=== PATIENT | female | born 1960 | race Caucasian/White ===

== ENCOUNTER 2018-02-19 08:28 | Day surgery (SDC) | payer BC, OTHER ==
[2018-02-19] MEDS ORDERED: DIPRIVAN 200 MG/20 ML IV ONE (08:29)
[2018-02-19] MEDS ORDERED: Ketamine HCl 50 MG/ML IV ONE (08:29)
[2018-02-19] MEDS ORDERED: Lactated Ringers 1,000 ML IV SCH (09:00)
--- NOTE | 2018-02-19 09:20 | HP ---
DATE OF SURGERY: 02/19/2018 HISTORY OF PRESENT ILLNESS: The patient is a 57 year-old had some change in bowel movements and some upper abdominal discomfort not related to gallbladder issues from reflux. I felt she would benefit from lower endoscopy for evaluation. PAST MEDICAL HISTORY: Hypercholesterolemia. History of some bradycardia in the past. Degenerative disc disease. PAST SURGICAL HISTORY: Cholecystectomy in the past. Gastrocnemius. Heel release in the past. Right rotator cuff, carpal tunnel. She had a ruptured ovarian cyst in the past. Hysterectomy in the past. MEDICATIONS: Clonazepam, citalopram, omeprazole, meloxicam, Esterase along with cholesterol medication. ALLERGIES: NKDA. FAMILY HISTORY: Hypertension, myocardial infarction, diabetes. SOCIAL HISTORY: No smoking. Occasional alcohol use. REVIEW OF SYSTEMS: Twelve systems reviewed pertinent for as noted above. PHYSICAL EXAMINATION: GENERAL: No acute distress. HEENT: Sclerae nonicteric. NECK: No JVD. CHEST: Equal excursion, nonlabored breathing. CVS: Regular rate and rhythm. ABDOMEN: Soft. No peritoneal signs. EXTREMITIES: No significant edema. NEURO: Alert, oriented, moving extremities symmetrically. No gross motor deficits noted. IMPRESSION: Upper abdominal discomfort and some reflux. I feel she would benefit from upper and lower endoscopy for further evaluation. She was shown the risk sheet and explained the procedure in detail including but not limited to bleeding or infection, risk of bowel injury or perforation possibly requiring open procedure, risk of missed or nondiagnosis or incomplete exam possibly requiring barium enema, other studies or procedures, general risk of bowel prep or sedation, postoperative risk of nausea or cramping but not limited to, possibility of inability to diagnose the etiology of her symptoms. She understands and agrees to the planned procedure and will proceed with EGD and colonoscopy as an outpatient.
[2018-02-19] MEDS ORDERED: Lactated Ringers 1,000 ML IV ONE (09:32)
[2018-02-19 13:00] VITALS: BP 133/74; PULSE 51; O2SAT 99
--- NOTE | 2018-02-20 07:58 | OP ---
SURGERY DATE/TIME: 02/19/2018 1045 PREOPERATIVE DIAGNOSES: 1) Increasing reflux, abdominal pain, left lower quadrant aches and pains, a little change in bowel movements. Past medical history of gastritis. 2) Rare, very tiny diverticula. 3) Small internal and external hemorrhoids. 4) Small raised lesion versus hyperplastic lesion transverse colon, descending colon, sigmoid colon. POSTOPERATIVE DIAGNOSES: 1) Increasing reflux, abdominal pain, left lower quadrant aches and pains, a little change in bowel movements. Past medical history of gastritis. 2) Rare, very tiny diverticula. 3) Small internal and external hemorrhoids. 4) Small raised lesion versus hyperplastic lesion transverse colon, descending colon, sigmoid colon. PROCEDURES: 1) Esophagogastroduodenoscopy with cold biopsy of small bowel to evaluate for celiac sprue. 2) Cold biopsy of the antrum to evaluate for Helicobacter pylori. 3) Random cold biopsies of esophagus to evaluate for eosinophilic esophagitis. 4) Colonoscopy to terminal ileum. 5) Retrograde ileoscopy. 6) Random cold biopsy of the left colon to evaluate for microscopic colitis. 7) Hot biopsy removal very small vague raised lesions versus hyperplastic lesions versus very early polyps transverse colon, descending colon, sigmoid colon. SURGEON: Dr. Bruno Gonzalez. PLUCK SEPARATOR: Ronit Beasley, Medical Student III. ANESTHESIA: MAC. ESTIMATED BLOOD LOSS: Minimal. INDICATIONS: As noted above. Risks and benefits explained in detail and not limited to and consent obtained. DESCRIPTION OF PROCEDURE AND FINDINGS: The patient is taken to the endoscopy suite. MAC anesthesia introduced. After official time out and no disagreement with planned procedure, a bite block positioned. Video gastroscope easily passed down the esophagus through the patent pylorus to the junction of the second and third portion of the duodenum. The duodenum and duodenal bulb grossly unremarkable. A cold biopsy taken to evaluate for celiac disease given her symptoms. Back in the stomach she did have some mild chronic gastritis. A cold biopsy was taken to evaluate for Helicobacter pylori in the antrum. On retroflex there was no evidence of any large hiatal hernia. The gastroesophageal junction was fairly snug against the scope. The scope was straightened and carefully withdrawn. There were no signs of gastritis. There were no signs of any obvious ulcers, masses or any other mucosal lesions on withdrawal of the scope. Gastroesophageal junction was around 39 to 40 cm. Z-line was very crisp. There were no signs of esophagitis. There were no signs of Rowell's esophagus. Esophageal mucosa was grossly unremarkable. Given her symptom complaints some random cold biopsies were taken throughout the esophagus to evaluate for eosinophilic esophagitis. Good hemostasis noted. Attention is then turned to colonoscopy. Digital rectal exam did not reveal any rectal masses. She did have some small internal and external hemorrhoids. Video colonoscope carefully inserted and passed up the somewhat tortuous sigmoid, descending, transverse and ascending colon. With external pressure the scope was able to be passed around to the cecum up through the terminal ileum. Retrograde ileoscopy performed which was grossly unremarkable. The scope slowly and carefully withdrawn. Prep was fair. There was some liquidy semi-solid stool suction irrigated clear slightly limited for very, very small lesions otherwise. On slow and careful withdrawal of the scope there were no signs of any large polyps, masses or obstructing lesion. There was some very vague small raised lesions versus hyperplastic lesions in the transverse colon, descending colon and sigmoid colon that were removed with hot biopsy forceps with brief bursts of cautery. Good hemostasis noted. She had a couple very rare, very tiny possible diverticula but there was no evidence of any extensive diverticulosis on exam. She had been having some symptoms on the left side some random cold biopsies were taken to evaluate for microscopic colitis. Good hemostasis noted. Small raised lesion versus hyperplastic lesion in the descending and sigmoid colon removed with hot biopsy forceps with brief bursts of cautery. Good hemostasis noted. In the rectum on retroflex she had some internal and external hemorrhoids. There were no signs of any large polyps, masses or obstructing lesions or microscopic colitis but cold biopsies had been taken to evaluate for microscopic colitis. The scope is withdrawn. The patient tolerated the procedure well. There were no immediate complications. Findings discussed with the family out in the waiting area.
== END 2018-02-19 13:00 | disposition home or self-care (01) ==
LOC: SDC 08:28
PROVIDERS: ATTEND Surgery
DX: K21.9 Gastro-esophageal reflux disease without esophagitis (principal); R10.32 Left lower quadrant pain; K64.4 Residual hemorrhoidal skin tags; K64.8 Other hemorrhoids; R19.4 Change in bowel habit; K63.9 Disease of intestine, unspecified
CPT/HCPCS: 88305; 94250; J2704